=== PATIENT | male | born 1980 | race Two or more races ===

== ENCOUNTER 2022-12-30 00:16 | Inpatient (IN) | payer OTHER ==
[2022-12-30] MEDS ORDERED: propofoL 100 ML ONE ×2 (00:29→02:16)
[2022-12-30] MEDS ORDERED: Rocuronium 50 MG/5 ML Vial IVPUSH STA ×2 (00:34→02:04)
[2022-12-30] MEDS ORDERED: Albuterol/Ipratropium 3.0-0.5 MG/3 ML Neb Soln NEB ONE (00:34)
[2022-12-30 00:35] LABS: BASOPHILS ABSOLUTE AUTO 0.05 K/mm3 (0.01-0.08); BASOPHILS PERCENT AUTO 0.3 % (0.1-1.2); EOSINOPHILS ABSOLUTE AUTO 0.35 K/mm3 (0.04-0.54); HEMATOCRIT 45.1 % (40.1-51.0); IMMATURE GRAN ABSOLUTE AUTO 0.07 K/mm3 (0.00-0.10); IMMATURE GRAN PERCENT AUTO 0.4 % (<=1.0); LYMPHOCYTES ABSOLUTE AUTO 7.79 K/mm3 (1.32-3.57); LYMPHOCYTES PERCENT AUTO 43.9 % (21.8-53.1); MEAN CORPUSCULAR HEMOGLOBIN 31.4 pg (25.7-32.2); MEAN CORPUSCULAR HGB CONC 33.3 g/dl (32.2-35.5); MEAN CORPUSCULAR VOLUME 94.5 fl (79.0-92.2); MEAN PLATELET VOLUME 10.3 fl (9.4-12.3); MONOCYTES ABSOLUTE AUTO 1.79 K/mm3 (0.30-0.82); MONOCYTES PERCENT AUTO 10.1 % (5.3-12.2); NEUTROPHILS ABSOLUTE AUTO 7.69 K/mm3 (1.78-5.38); NEUTROPHILS PERCENT AUTO 43.3 % (34.0-67.9); PLATELET COUNT,PLT 328 K/mm3 (163-337); RED BLOOD CELL COUNT 4.77 M/mm3 (4.63-6.08); WHITE BLOOD CELL COUNT,WBC 17.74 K/mm3 (4.23-9.07)
[2022-12-30] MEDS ORDERED: Sodium Chloride 0.9% 1,000 ML IV SCH ×2 (00:45→06:30)
[2022-12-30 00:49] LABS: INR 1.03
[2022-12-30 00:50] LABS: PTT,PARTIAL THROMBOPLSTIN TIME 24.1 SECONDS (21.7-31.4)
[2022-12-30 00:54] LABS: SLIDE REVIEW NORMAL SMEAR
[2022-12-30 00:55] LABS: BARBITURATE SCREEN,URINE NEGATIVE (CUTOFF=200); BENZODIAZEPINES SCREEN,URINE NEGATIVE (CUTOFF=150); BUPRENORPHINE SCREEN,URINE NEGATIVE (CUTOFF=10); METHADONE SCREEN, URINE NEGATIVE (CUT0FF=200); METHAMPHETAMINES SCREEN, URINE NEGATIVE (CUTOFF=500); OXYCODONE SCREEN,URINE PRESUMPTIVE POSITIVE (CUT0FF=100); PROPOXYPHENE SCREEN,URINE NEGATIVE (CUTOFF=300); THC SCREEN,URINE 20 NG/ML NEGATIVE (CUTOFF=50)
[2022-12-30 00:59] LABS: ALBUMIN 3.6 g/dl (3.4-5.0); ANION GAP 21.6 (5-15); BILIRUBIN TOTAL 0.3 mg/dL (0.2-1.0); BUN/CREATININE RATIO 6.9 (14-18); CALCIUM 8.4 mg/dL (8.5-10.1); CREATININE 1.6 mg/dL (0.7-1.3); EST CRCL DRUG DOSING (CG) 66.01 mL/min; POTASSIUM,K 3.6 mEq/L (3.5-5.1); PROTEIN TOTAL,TP 7.3 g/dl (6.4-8.2)
[2022-12-30 01:02] LABS: BASE EXCESS ARTERIAL -5.9 (-2-2.0); BICARBONATE,ARTERIAL 25.8 meq/L (22.0-26.0); O2 SATURATION ARTERIAL 93.8 % (96.0-97.0); PCO2 ARTERIAL 79.8 mmHg (35.0-45.0)
[2022-12-30 01:03] LABS: AMPHETAMINES SCREEN, URINE NEGATIVE (CUTOFF=500)
[2022-12-30] MEDS ORDERED: Sodium Chloride 0.9% 1,000 ML IV ONE (01:27)
[2022-12-30 02:41] LABS: BASE EXCESS ARTERIAL -1.8 (-2-2.0); BICARBONATE,ARTERIAL 24.9 meq/L (22.0-26.0); O2 SATURATION ARTERIAL 98.7 % (96.0-97.0); PCO2 ARTERIAL 52.2 mmHg (35.0-45.0)
[2022-12-30 03:39] LABS: BASE EXCESS ARTERIAL -1.7 (-2-2.0); BICARBONATE,ARTERIAL 24.6 meq/L (22.0-26.0); O2 SATURATION ARTERIAL 99.1 % (96.0-97.0)
[2022-12-30 04:56] LABS: BICARBONATE,ARTERIAL 22.6 meq/L (22.0-26.0); O2 SATURATION ARTERIAL 99.1 % (96.0-97.0); PCO2 ARTERIAL 48.2 mmHg (35.0-45.0)
[2022-12-30] MEDS: propofoL 100 ML IV SCH ×4 (05:54→21:54)
[2022-12-30] MEDS ORDERED: Albuterol 0.083% 2.5 MG/3 ML Neb Soln NEB PRN (06:17)
[2022-12-30] MEDS ORDERED: Ondansetron 4 MG/2 ML SDV IV PRN (06:17)
[2022-12-30] MEDS ORDERED: Pantoprazole 40 MG Vial IVPUSH ONE (06:17)
[2022-12-30 06:25] LABS: ANION GAP 13.3 (5-15); BUN/CREATININE RATIO 6.9 (14-18); CREATININE 1.3 mg/dL (0.7-1.3); EST CRCL DRUG DOSING (CG) 81.25 mL/min; POTASSIUM,K 4.3 mEq/L (3.5-5.1)
[2022-12-30 06:47] LABS: BASOPHILS ABSOLUTE AUTO 0.01 K/mm3 (0.01-0.08); BASOPHILS PERCENT AUTO 0.1 % (0.1-1.2); EOSINOPHILS ABSOLUTE AUTO 0.11 K/mm3 (0.04-0.54); EOSINOPHILS PERCENT AUTO 0.8 (0.8-7.0); HEMATOCRIT 50.3 % (40.1-51.0); IMMATURE GRAN ABSOLUTE AUTO 0.05 K/mm3 (0.00-0.10); IMMATURE GRAN PERCENT AUTO 0.4 % (<=1.0); LYMPHOCYTES ABSOLUTE AUTO 0.96 K/mm3 (1.32-3.57); LYMPHOCYTES PERCENT AUTO 7.3 % (21.8-53.1); MEAN CORPUSCULAR HGB CONC 33.6 g/dl (32.2-35.5); MEAN CORPUSCULAR VOLUME 92.3 fl (79.0-92.2); MEAN PLATELET VOLUME 10.2 fl (9.4-12.3); MONOCYTES ABSOLUTE AUTO 1.19 K/mm3 (0.30-0.82); MONOCYTES PERCENT AUTO 9.1 % (5.3-12.2); NEUTROPHILS ABSOLUTE AUTO 10.75 K/mm3 (1.78-5.38); NEUTROPHILS PERCENT AUTO 82.3 % (34.0-67.9); PLATELET COUNT,PLT 313 K/mm3 (163-337); RED BLOOD CELL COUNT 5.45 M/mm3 (4.63-6.08); WHITE BLOOD CELL COUNT,WBC 13.07 K/mm3 (4.23-9.07)
[2022-12-30 06:54] LABS: HEMOGLOBIN 16.9 gm/dl (13.7-17.5)
[2022-12-30] MEDS ORDERED: Midazolam 1 MG/ML 2 ML SDV IVPUSH ONE (07:33)
[2022-12-30] MEDS ORDERED: Midazolam 1 MG/ML 2 ML SDV ONE (07:34)
[2022-12-30] MEDS ORDERED: Insulin Lispro 100 Unit/ML 3 ML KwikPen SUBCUT PRN ×2 (07:48→10:15)
[2022-12-30] MEDS: Heparin Sodium 5,000 Units/ML Vial SUBCUT SCH ×3 (07:50→22:26)
[2022-12-30] MEDS: Sodium Chloride 0.9% 1,000 ML IV SCH ×2 (09:21→16:11)
[2022-12-30] MEDS: Norepinephrine 4 MG in Dextrose 5% in Water 246 ML IV SCH ×2 (09:36)
[2022-12-30 10:14] LABS: HEMOGLOBIN A1C 5.7 %
[2022-12-30] MEDS ORDERED: Piperacillin/Tazobactam 4.5 GM in Sodium Chloride 0.9% 100 ML IV ONE (10:30)
[2022-12-30] MEDS: Insulin Lispro 100 Unit/ML 3 ML KwikPen SUBCUT SCH ×3 (10:52→22:23)
[2022-12-30 12:53] LABS: BASE EXCESS ARTERIAL -3.1 (-2-2.0); BICARBONATE,ARTERIAL 21.8 meq/L (22.0-26.0); O2 SATURATION ARTERIAL 93.5 % (96.0-97.0)
[2022-12-30 14:48] LABS: BASE EXCESS ARTERIAL -2.8 (-2-2.0); O2 SATURATION ARTERIAL 94.5 % (96.0-97.0); PCO2 ARTERIAL 40.5 mmHg (35.0-45.0)
[2022-12-30] MEDS: Piperacillin/Tazobactam 4.5 GM in Sodium Chloride 0.9% 100 ML IV SCH (17:51)
[2022-12-30] MEDS: Dextrose 5%-0.9% NaCl 1,000 ML IV SCH (22:27)
[2022-12-31] MEDS: Norepinephrine 4 MG in Dextrose 5% in Water 246 ML IV SCH ×2 (00:13)
[2022-12-31] MEDS: Piperacillin/Tazobactam 4.5 GM in Sodium Chloride 0.9% 100 ML IV SCH ×2 (01:57→11:40)
[2022-12-31] MEDS: propofoL 100 ML IV SCH ×2 (01:57→05:38)
[2022-12-31 04:30] LABS: BASE EXCESS ARTERIAL -1.4 (-2-2.0); BICARBONATE,ARTERIAL 23.3 meq/L (22.0-26.0); O2 SATURATION ARTERIAL 93.2 % (96.0-97.0); PCO2 ARTERIAL 41.5 mmHg (35.0-45.0)
[2022-12-31] MEDS: Insulin Lispro 100 Unit/ML 3 ML KwikPen SUBCUT SCH ×2 (05:10→11:40)
[2022-12-31] MEDS: Heparin Sodium 5,000 Units/ML Vial SUBCUT SCH (05:37)
[2022-12-31] MEDS: Dextrose 5%-0.9% NaCl 1,000 ML IV SCH (05:38)
[2022-12-31 05:44] LABS: A/G RATIO 0.8 (1-2); ALBUMIN 2.6 g/dl (3.4-5.0); ANION GAP 13.5 (5-15); BILIRUBIN TOTAL 0.6 mg/dL (0.2-1.0); BUN/CREATININE RATIO 10.8 (14-18); CREATININE 1.3 mg/dL (0.7-1.3); EST CRCL DRUG DOSING (CG) 81.25 mL/min; MAGNESIUM 1.7 mg/dL (1.8-2.4); POTASSIUM,K 3.5 mEq/L (3.5-5.1)
[2022-12-31 06:07] LABS: BASOPHILS ABSOLUTE AUTO 0.03 K/mm3 (0.01-0.08); BASOPHILS PERCENT AUTO 0.2 % (0.1-1.2); EOSINOPHILS ABSOLUTE AUTO 0.33 K/mm3 (0.04-0.54); EOSINOPHILS PERCENT AUTO 1.8 (0.8-7.0); HEMATOCRIT 40.3 % (40.1-51.0); IMMATURE GRAN ABSOLUTE AUTO 0.04 K/mm3 (0.00-0.10); IMMATURE GRAN PERCENT AUTO 0.2 % (<=1.0); LYMPHOCYTES ABSOLUTE AUTO 2.34 K/mm3 (1.32-3.57); LYMPHOCYTES PERCENT AUTO 12.7 % (21.8-53.1); MEAN CORPUSCULAR HEMOGLOBIN 30.7 pg (25.7-32.2); MEAN CORPUSCULAR HGB CONC 32.3 g/dl (32.2-35.5); MEAN PLATELET VOLUME 11.3 fl (9.4-12.3); MONOCYTES ABSOLUTE AUTO 1.52 K/mm3 (0.30-0.82); MONOCYTES PERCENT AUTO 8.2 % (5.3-12.2); NEUTROPHILS PERCENT AUTO 76.9 % (34.0-67.9); PLATELET COUNT,PLT 233 K/mm3 (163-337); RED BLOOD CELL COUNT 4.24 M/mm3 (4.63-6.08); WHITE BLOOD CELL COUNT,WBC 18.46 K/mm3 (4.23-9.07)
[2022-12-31] MEDS ORDERED: Furosemide 40 MG/4 ML VIAL IVPUSH STA (06:56)
[2022-12-31 08:10] LABS: SLIDE REVIEW ABNORMAL SMEAR
[2023-01-02 04:46] LABS: HBSAG SCREEN Negative (Negative); HCV AB Non Reactive (Non Reactive); HEP A AB, IGM Negative (Negative); HEP B CORE AB, IGM Negative (Negative)
== END 2022-12-31 11:42 | DRG 917 ==
LOC: JD.ED 00:16 → JD.ICU 06:17
PROVIDERS: ADMIT Emergency Medicine; ATTEND Emergency Medicine
PROC: 4A133R1 Monitoring of Arterial Saturation, Peripheral, Percutaneous Approach (ICD-10-PCS; principal; 2022-12-30)
PROC: 5A1935Z Respiratory Ventilation, Less than 24 Consecutive Hours (ICD-10-PCS; 2022-12-30)
PROC: 02HV33Z Insertion of Infusion Device into Superior Vena Cava, Percutaneous Approach (ICD-10-PCS; 2022-12-30)
DX: T40.411A Poisoning by fentanyl or fentanyl analogs, accidental (unintentional), initial encounter (principal); J69.0 Pneumonitis due to inhalation of food and vomit; J96.01 Acute respiratory failure with hypoxia; E72.51 Non-ketotic hyperglycinemia; E87.20 Acidosis, unspecified; E87.3 Alkalosis; T40.2X1A Poisoning by other opioids, accidental (unintentional), initial encounter; D72.829 Elevated white blood cell count, unspecified; R74.02 Elevation of levels of lactic acid dehydrogenase [LDH]; R74.01 Elevation of levels of liver transaminase levels; F17.210 Nicotine dependence, cigarettes, uncomplicated; Z99.81 Dependence on supplemental oxygen
CPT/HCPCS: 36415; 36600; 51702; 70450; 70450-26; 71045; 71045-26; 80048; 80053; 80074; 80306; 80307; 82803; 82947; 83036; 83605; 83735; 83880; 84484; 85025; 85610; 85730; 86140; 94003; 96361; 96374; 96375; 96376; 99285; 99285-25; C1751; C9113; J1644; J1940; J2250; J2543; J2704; J3490; J7030; J7042; J7060